=== PATIENT | male | born 1955 | race Asian ===

== ENCOUNTER 2018-11-21 21:10 | Emergency (ER) | payer OTHER ==
[~2018-11-21] VITALS: Ht 185.4 cm; Wt 93.0 kg
[2018-11-21 22:16] LABS: POTASSIUM 4.3 mmol/L (3.6-5.2)
[2018-11-21 22:20] LABS: PLATELET COUNT 209 K/uL (142-355)
[2018-11-21 23:06] VITALS: BP 120/88; TEMP 98.2
== END 2018-11-21 23:07 | disposition home or self-care (01) ==
LOC: ED 21:10
PROVIDERS: Internal Medicine
DX: R60.9 Edema, unspecified (principal); K59.00 Constipation, unspecified; S50.311A Abrasion of right elbow, initial encounter; W19.XXXA Unspecified fall, initial encounter
CPT/HCPCS: 36415; 74022; 80053; 81000; 85027; 93005; 99283